=== PATIENT | female | born 1980 | race Caucasian/White ===

== ENCOUNTER → 2020-05-20 11:49 | Outpatient (CLI) | payer OTHER, SELFPAY ==
[2020-05-20 19:02] LABS: HIV - WCH Non-Reactive (Nonreactive); Hepatitis B Surface Antibody Reactive; Hepatitis B Surface Antigen Non-Reactive (Nonreactive); Hepatitis C Antibody Non-Reactive (Nonreactive)
== END ==
DX: Z00.00 Encounter for general adult medical examination without abnormal findings (principal)
CPT/HCPCS: 86703; 86706; 86803; 87340